=== PATIENT | male | born 1940 | race Caucasian/White ===

== ENCOUNTER 2019-01-11 00:47 | Emergency (ER) | payer BC ==
[~2019-01-11] VITALS: Ht 177.8 cm; Wt 59.9 kg
[2019-01-11 00:48] VITALS: Ht 177.8 cm; Wt 59.9 kg
[2019-01-11 01:55] LABS: BASOPHIL % 0.3 % (0-2); PLATELET COUNT 293 x10^3mcL (130-400); RED CELL DISTRIBUTION WIDTH 13.1 % (11.5-14.5)
[2019-01-11 02:10] LABS: CALCIUM 8.9 mg/dL (8.5-10.1); CARBON DIOXIDE 20.1 mmol/L (21-32); CHLORIDE SERUM 108 mmol/L (98-107); CREATININE SERUM 1.5 mg/dL (0.7-1.3); GLUCOSE SERUM 235 mg/dL (74-106); POTASSIUM SERUM 3.1 mmol/L (3.5-5.1); SODIUM SERUM 145 mmol/L (136-145)
[2019-01-11 02:14] LABS: ALKALINE PHOSPHATASE 107 U/L (46-116); ALT/SGPT 90 U/L (16-63); AST/SGOT 53 U/L (15-37); BILIRUBIN TOTAL 0.21 mg/dL (0.20-1.00); TOTAL PROTEIN, SERUM 6.9 g/dL (6.4-8.2)
[2019-01-11 02:15] LABS: ALBUMIN 2.5 g/dL (3.4-5.0)
[2019-01-11] MEDS ORDERED: LIPITOR40 MG PO (02:34)
[2019-01-11] MEDS ORDERED: LISINOPRIL40 MG PO (02:34)
[2019-01-11] MEDS ORDERED: RANEXA1000 M2 PO (02:34)
[2019-01-11] MEDS ORDERED: PLA75 PO (02:36)
[2019-01-11] MEDS ORDERED: NOR5 PO (02:36)
[2019-01-11] MEDS ORDERED: CARVEDILOL6.25 M1 PO (02:36)
[2019-01-11 02:44] LABS: microscopic required? YES; urine erythrocyte 1+ (NEGATIVE)
[2019-01-11 02:56] LABS: AMPHETAMINE QUAL UR NONE DETECTED (See below)
[2019-01-11 03:27] VITALS: BP 142/78
[2019-01-11 03:59] VITALS: BP 105/67
== END 2019-01-11 03:59 | disposition short-term general hospital (02) ==
LOC: ED 00:47
PROVIDERS: Emergency Medicine
DX: I46.9 Cardiac arrest, cause unspecified (principal)
CPT/HCPCS: 36600; 82962; 83880; G0480; J1940; J2704; J3490; Q0092